=== PATIENT | female | born 1980 | race Native Hawaiian/Other Pacific Islander ===

== ENCOUNTER 2016-05-25 12:50 | Emergency (ER) | payer OTHER ==
[~2016-05-25] VITALS: Ht 162.6 cm; Wt 117.9 kg
[2016-05-25 15:19] VITALS: BP 150/84; TEMP 98.6
== END 2016-05-25 15:20 | disposition home or self-care (01) ==
LOC: ED 12:50
DX: G43.909 Migraine, unspecified, not intractable, without status migrainosus (principal)
CPT/HCPCS: 96361; 96374; 96375; 99284; J1100; J1200; J1885; J2405

== ENCOUNTER 2022-04-27 07:47 | Outpatient (CLI) | payer BC | END 2022-04-27 22:31 | disposition home or self-care (01) | LOC: RAD 07:47 | PROVIDERS: ATTEND Internal Medicine | DX: Z13.820 Encounter for screening for osteoporosis (principal); E55.9 Vitamin D deficiency, unspecified ==